=== PATIENT | male | born 1975 | race Asian ===

== ENCOUNTER 2017-05-19 14:57 | Emergency (ER) | payer BC, OTHER ==
[~2017-05-19] VITALS: Ht 172.7 cm; Wt 87.1 kg
[2017-05-19] MEDS ORDERED: AMLO5TAB2 PO (15:21)
--- NOTE | 2017-05-19 15:40 | NUR ---
KENZIE BO AT THE BEDSIDE.
[2017-05-19] MEDS ORDERED: ASPIRIN 81 MG TAB.CHEW PO ONE (15:45)
[2017-05-19] MEDS ORDERED: ASPIRIN 81 MG TAB.CHEW ONE (15:56)
[2017-05-19 15:58] LABS: BASOPHILS # (AUTO) 0.1 K/uL (0.0-8.0); BASOPHILS % (AUTO) 0.4 % (0.0-2.0); EOSINOPHILS % (AUTO) 0.3 % (0.0-7.0); HEMATOCRIT 51.7 % (36.7-47.1); HEMOGLOBIN 17.8 g/dL (12.5-16.3); LYMPHOCYTES # (AUTO) 0.9 K/uL (20.0-40.0); LYMPHOCYTES % (AUTO) 6.7 % (20.5-51.5); MEAN CORPUSCULAR HGB CONC 34 g/dL (32.5-36.3); MONOCYTES # (AUTO) 0.7 K/uL (2.0-10.0); MONOCYTES % (AUTO) 4.8 % (0.0-11.0); NEUTROPHILS # (AUTO) 12.2 K/uL (1.8-8.9); NEUTROPHILS % (AUTO) 87.8 % (38.5-71.5); PLATELET COUNT (AUTO) 200 K/uL (152-348); RED BLOOD CELL COUNT(AUTO) 5.75 MIL/uL (4.06-5.63); WHITE BLOOD COUNT (AUTO) 13.9 K/uL (3.6-10.2)
[2017-05-19 16:07] LABS: CREATININE 0.9 mg/dL (0.6-1.3); POTASSIUM 3.9 mmol/L (3.5-5.1)
--- NOTE | 2017-05-19 18:15 | NUR ---
[facility]. Written and verbal after care instructions given. Patient verbalizes understanding of instructions.
[2017-05-19 18:16] VITALS: BP 129/98
== END 2017-05-19 18:17 ==
LOC: ER 14:58
DX: R07.9 Chest pain, unspecified (principal); I10 Essential (primary) hypertension
CPT/HCPCS: 36415; 70030-TC; 71045; 85025; 85730; 93005; A4663